=== PATIENT | male | born 1970 | race Hispanic/Latino ===

== ENCOUNTER 2022-09-19 13:15 | Emergency (ER) | payer OTHER ==
[~2022-09-19] VITALS: Ht 170.2 cm; Wt 74.8 kg
[2022-09-19] MEDS ORDERED: NAPROSYN500 MG PO (14:16)
[2022-09-19] MEDS ORDERED: TOBREX5 ML OP (14:16)
[2022-09-19] MEDS ORDERED: TETRACAINE HCL 0.5% OPTH SOLN 4 ML BTL OP ONE (14:30)
[2022-09-19] MEDS ORDERED: FLUORESCEIN SOD(OPTH) 1 MG STRP OP ONE (14:30)
== END 2022-09-19 14:30 | disposition home or self-care (01) ==
LOC: FSED 13:25
DX: H57.12 Ocular pain, left eye (principal); S05.02XA Injury of conjunctiva and corneal abrasion without foreign body, left eye, initial encounter; H10.9 Unspecified conjunctivitis; Y93.E5 Activity, floor mopping and cleaning
CPT/HCPCS: 99283